=== PATIENT | female | born 1980 | race Caucasian/White ===

== ENCOUNTER → 2018-06-08 | Outpatient (CLI) | payer OTHER | END | disposition home or self-care (01) | LOC: C.LAB1850 14:38 | PROVIDERS: ATTEND Internal Medicine Endocrinology, Diabetes & Metabolism | DX: R79.89 Other specified abnormal findings of blood chemistry (principal) ==

== ENCOUNTER → 2018-06-30 | Outpatient (CLI) | payer OTHER ==
--- NOTE | 2018-06-30 11:26 | DIAGNOSTIC IMAGING REPORT ---
ULTRASOUND-GUIDED FINE-NEEDLE ASPIRATION OF A RIGHT THYROID NODULE HISTORY: Right thyroid nodule. 241.1, E04.2 COMPARISON: Thyroid ultrasound 05/12/2018 PROCEDURE: Written informed consent was obtained. The neck was prepped and draped in the usual sterile fashion. 1% lidocaine was used for local anesthesia. A total of 3 passes using a 25-gauge needle were made through the dominant 1.6 cm right thyroid nodule under ultrasound guidance. Specimens were given to the on-site pathologist who determined adequate tissue for diagnosis. The patient tolerated the procedure well. There were no immediate complications. IMPRESSION: Successful ultrasound-guided fine-needle aspiration of a right thyroid nodule. Electronically signed by: Jon Washington M.D. 06/30/2018 11:25 AM Dictated Date/Time: 06/30/2018 11:24 AM
== END | disposition home or self-care (01) ==
LOC: C.ULTR 09:23
PROVIDERS: ATTEND Internal Medicine Endocrinology, Diabetes & Metabolism
DX: E04.2 Nontoxic multinodular goiter (principal)

== ENCOUNTER → 2018-07-11 | Outpatient (CLI) | payer OTHER | END | disposition home or self-care (01) | LOC: C.LAB1850 17:22 | PROVIDERS: ATTEND Internal Medicine Endocrinology, Diabetes & Metabolism | DX: R79.89 Other specified abnormal findings of blood chemistry (principal) ==